=== PATIENT | male | born 1945 | race Caucasian/White ===

== ENCOUNTER → 2016-07-16 14:05 | Outpatient (CLI) | payer MEDICARE, BC | END | disposition home or self-care (01) | LOC: D.US 14:05 | DX: R60.0 Localized edema (principal) ==

== ENCOUNTER → 2017-04-20 12:03 | Outpatient (CLI) | payer MEDICARE, BC | END | disposition home or self-care (01) | LOC: D.RT 12:03 | DX: I49.9 Cardiac arrhythmia, unspecified (principal); I48.91 Unspecified atrial fibrillation ==

== ENCOUNTER → 2017-06-24 07:40 | Outpatient (CLI) | payer MEDICARE, BC ==
[~2017-06-24] VITALS: Ht 190.5 cm; Wt 115.9 kg
--- NOTE | ~2017-06-24 | OP ---
PATIENT NAME: HAMILTON HAYNES MEDICAL RECORD: [id number] :47 LOCATION:D.CAT ADMISSION DATE: SURGEON: RYAN ESTEBAN MD DATE OF OPERATION: 06/24/2017 PROCEDURES: 1. Left heart catheterization. 2. Selective coronary angiography. 3. Left ventriculogram. 4. Aortofemoral runoff. 5. Abdominal aortography. INDICATION: Chest pain compatible with angina, shortness of breath, dyspnea on exertion, abnormal nuclear stress test, leg pain compatible with claudication. PROCEDURE IN DETAIL: After informed consent was obtained and after detailed explanation of risks and benefits as well as alternative therapies, the patient elected to proceed with angiogram and heart catheterization. The right femoral area is prepped and draped in normal sterile fashion. The right femoral artery was cannulated via modified Seldinger technique with placement of 5-Bulgarian sheath. All catheter exchanged through this sheath. FINDINGS: Left ventriculogram was performed in standard 30-degree PRAJAPATI view, reveals preserved cardiac wall motion, ejection fraction 55% to 60%. SELECTIVE CORONARY ANGIOGRAPHY: Left main, left anterior descending, left circumflex, and right coronary are all smooth-walled vessels with no angiographic evidence of coronary artery disease. Abdominal aortography was performed. The catheter was pulled down for aortofemoral runoff. Abdominal aortography reveals no significant abdominal aortic disease, no dissection or aneurysm formation. RIGHT LEG: A. Iliac: The common internal and external iliacs have mild irregularities, but no flow-limiting stenosis. B. Femoral system: The common superficial and deep femoral mild irregularities, but no flow-limiting stenosis. C. Popliteal and infrapopliteal vessels are widely patent with good 3-vessel runoff to the foot. LEFT LEG: A. Iliac: The common internal and external iliacs have mild irregularities, but no flow-limiting stenosis. B. Femoral system: The common superficial and deep femoral mild irregularities, but no flow-limiting stenosis. C. Popliteal and infrapopliteal vessels are widely patent with good 3-vessel runoff to the foot. OVERALL IMPRESSION: 1. No significant coronary artery disease is present. 2. Normal left ventricular systolic function. 3. No significant peripheral vascular disease is present. TRANSINT:[id number] Voice Confirmation ID: [id number] DOCUMENT ID: [id number] OPERATIVE REPORT [id number] HAMILTON HAYNES RYAN ESTEBAN MD at 1056 CC: [id number] DICTATION DATE: 06/24/17 1000 AGRICULTURAL ADVISER: 06/24/17 1113 DEP CLI 06/24/17 [place] [id number] [place] [address]
--- NOTE | ~2017-06-24 | HEMODYNAMI ---
PATIENT:HAMILTON HAYNES MEDICAL RECORD: [id number] : 47 LOCATION:D[facility] ADMISSION DATE: 06/24/17 Generatedon:06/24/20179:58 Patient name: HAMILTON HAYNES Patient #: [id number] SSN: : 1945 Date of study: 06/24/2017 Page: Of Hemodynamic Procedure Report Patient Data Patient Demographics Procedure consent was obtained First Name: HAMILTON Gender: Male Last Name: [place] : 1945 Middle Initial: W Age: 71 year(s) Patient #: [id number] Race: Additional ID: [id number] Contact details [address]: [address] [place] [address] State: [place] City: [place] Zip code: [address] Admission Admission Data Admission Date: 06/24/2017 Admission Time: 7:40 Procedure Procedure Types Cath Procedure Diagnostic Procedure LHC LHC w/Coronaries Peripheral Cath Diagnostic Procedure Cath Peripheral Rakfk-Bvjpgch-Rvu-Off Procedure Description Procedure Date Procedure Date: 06/24/2017 Procedure Start Time: 9:45 Procedure End Time: 9:56 Procedure Staff Name Function Fredi Mcleod MD Performing Physician Catherine Goodwin RT Scrub Veena Santiago RT Monitor Gurjit Rodriguez RN Nurse Procedure Data Cath Procedure Fluoroscopy Diagnostic fluoroscopy Total fluoroscopy Time: 3.5 time: 3.5 min min Diagnostic fluoroscopy Total fluoroscopy dose: 902 dose: 902 mGy mGy Contrast Material Contrast Material Type Amount (ml) Isovue 300 91 Entry Location Entry Primary Successful Side Size Upsize Upsize Entry Closure Succes sful Closure Location (Fr) 1 (Fr) 2 (Fr) Remarks Device Remarks Femoral Right 5 Fr Exoseal artery Estimated blood loss: 5 ml Diagnostic catheters Device Type Used For End Catheter Placement MULTIPACK Pigtail 5 Fr Multi-vessel catheter Angiography MULTIPACK JL 4.0 5Fr Left Coronary catheter Angiography DIAGNOSTIC JL 4.0 5Fr Left Coronary catheter ([id number]) Angiography MULTIPACK 3DRC 5Fr Right Coronary catheter Angiography Procedure Complications No complications Procedure Medications Medication Administration Route Dosage Oxygen NC 2 l/min Lidocaine 2% added to field 20 Heparin Flush Bag added to field 2 bags (1000units/500ml NS) 0.9% NaCl I.V. 100 ml/hr Versed I.V. 1 mg Fentanyl I.V. 50 mcg Versed I.V. 1 mg Fentanyl I.V. 50 mcg Versed I.V. 1 mg Fentanyl I.V. 50 mcg Versed I.V. 1 mg Fentanyl I.V. 50 mcg Hemodynamics Rest Heart Rate: 53 (bpm) Pressure Samples Time Site Value (mmHg) Purpose Heart Use Rate(bpm) 9:47 LV 115/14,24 Snapshot 56 Snapshots Pre Cath Intra NCS Post Cath Vital Signs Time Heart Resp SPO2 NIBP (mmHg) Rhythm Pain Sedation Rate (ipm) (%) Status Level (bpm) 9:35:23 55 18 99 184/98(147) NSR 0 (11) 10(A) , No pain 9:39:47 54 14 97 169/90(136) NSR 0 (11) 10(A) , No pain 9:44:15 54 19 94 161/84(133) NSR 0 (11) 10(A) , No pain 9:48:46 55 17 95 154/90(137) NSR 0 (11) 10(A) , No pain 9:54:04 55 18 96 166/94(139) NSR 0 (11) 10(A) , No pain Medications Time Medication Route Dose Verified Delivered Reason Notes Effec tiveness by by 9:33:42 Oxygen NC 2 Fredi Tierneyie used for l/min Harsha Rodriguez RN procedure 9:33:50 Lidocaine 2% added 20ml Fredi Fredi for local to vial Harsha Mcleod MD anesthetic field 9:33:56 Heparin Flush added 2 Fredi Fredi used for Bag to bags Harsha Mcleod MD procedure (1000units/500ml field NS) 9:34:04 0.9% NaCl I.V. 100 Fredi Buffie Per ml/hr Harsha Rodriguez RN physician 9:41:07 Versed I.V. 1 mg Fredi Tierneyie for Harsha Rodriguez RN sedation 9:41:13 Fentanyl I.V. 50 Fredi Tierneyie for mcg Harsha Rodriguez RN sedation 9:44:40 Versed I.V. 1 mg Fredi Cagle for Harsha Rodriguez RN sedation 9:44:43 Fentanyl I.V. 50 Fredi Cagle for jaden Rodriguez RN sedation 9:47:03 Versed I.V. 1 mg Fredi Cagle for Harsha Rodriguez RN sedation 9:47:06 Fentanyl I.V. 50 Fredi Cagle for jaden Rodriguez RN sedation 9:50:56 Versed I.V. 1 mg Fredi Cagle for Harsha Rodriguez RN sedation 9:50:59 Fentanyl I.V. 50 Fredi Cagle for jaden Rodriguez RN sedation Procedure Log Time Note 9:00:58 Catherine Goodwin RT(R) sent for patient. Start room use. 9:19:22 Informed consent obtained and on chart 9:20:06 Time tracking: Regular hours 9:20:11 Plan of Care:Hemodynamics will remain stable., Cardiac rhythm will remain stable., Comfort level will be maintained., Respiratory function will remain adequate., Patient/ family verbilizes understanding of procedure., Procedure tolerated without complication., Recovers from procedure without complications.. 9:26:36 Patient received from Pre/Post Procedure Room to CCL 2 Alert and oriented. Tansferred to table in Supine position. 9:26:37 Warm blankets applied, and ezequiel hugger turned on for patient comfort. 9:26:37 Correct patient and procedure confirmed by team. 9:26:38 ECG and BP/O2 sat monitors applied to patient. 9:33:42 Oxygen 2 l/min NC was administered by Gurjit Rodriguez RN; used for procedure; 9:33:50 Lidocaine 2% 20ml vial added to field was administered by Fredi Mcleod MD; for local anesthetic; 9:33:56 Heparin Flush Bag (1000units/500ml NS) 2 bags added to field was administered by Fredi Mcleod MD; used for procedure; 9:34:04 0.9% NaCl 100 ml/hr I.V. was administered by Gurjit Rodriguez RN; Per physician; 9:34:07 Vital chart was started 9:35:47 Baseline sample Acquired. 9:35:51 Rhythm: sinus rhythm 9:35:53 Full Disclosure recording started 9:36:11 H&P Date Dictated: 06/02/2017 Within 30 days and on chart., H&P Addendum completed by physician on day of procedure. (MUST COMPLETE FOR ALL OUTPATIENTS). 9:36:12 Pre-procedure instructions explained to patient. 9:36:13 Pre-op teaching completed and patient verbalized understanding. 9:36:14 Family in waiting room. 9:36:15 Patient NPO since Midnight. 9:36:17 Is the patient allergic to Iodine/contrast media? Yes. 9:36:18 Was the patient premedicated? Yes 9:36:19 Is patient on blood thinner?Yes 9:36:22 ACC The patient was administered the following blood thiners within the last 24 hours: ACCPlavix 9:36:24 Patient diabetic? No. 9:36:26 Previous problem with sedation/anesthesia? No ? 9:36:27 Snore? Yes 9:36:28 Sleep apnea? No 9:36:29 Deviated septum? No 9:36:30 Opens mouth fully? Yes 9:36:30 Sticks out tongue? Yes 9:36:32 Airway obstruction? No ? 9:36:36 Dentures? No ? 9:36:39 Pre procedure: right dorsailis pedis pulse 1+ Palpable, but thready & weak; easily obliterated 9:36:43 Pre procedure: left dorsailis pedis pulse 1+ Palpable, but thready & weak; easily obliterated 9:36:46 Patient pain scale 0/10 ?. 9:36:51 IV patent on arrival in left forearm with 0.9% NaCl at O. 9:36:56 Lab results completed and on chart. 9:37:04 Bilateral groins area was prepped with chlora-prep and draped in sterile fashion 9:37:05 Alarms reviewed by R. N. 9:37:05 Sharps counted by scrub and verified by R.N. 9:40:38 Physician arrived 9:40:39 --------ALL STOP TIME OUT------ 9:40:39 Final Timeout: patient, procedure, and site verified with staff and physician. All members of the team are in agreement. 9:40:44 Bilateral groins site verified by team. 9:40:46 Physical assessment completed. ASA score P 2 - A patient with mild systemic disease as per Fredi Mcleod MD. 9:40:49 Sedation plan: IV Moderate Sedation Medication:Versed, Fentanyl 9:40:56 Use device set Femoral Dx 9:40:57 ACIST Syringe (11729) opened to sterile field. 9:40:58 Bag Decanter (2002S) opened to sterile field. 9:40:58 Medline Cath Pack ([id number]) opened to sterile field. 9:41:04 SHEATH 5FR [place] ([id number]) opened to sterile field. 9:41:05 DIAGNOSTIC WIRE .035 260cm J wire (338810) opened to sterile field. 9:41:06 ACIST Hand Control (10626) opened to sterile field. 9:41:07 Versed 1 mg I.V. was administered by Gurjit Rodriguez RN; for sedation; 9:41:07 ACIST Manifold (17447) opened to sterile field. 9:41:07 DIAGNOSTIC Multipack 5Fr catheter set ([id number]) opened to sterile field. 9:41:08 Tegaderm 4 x 4 (1626W) opened to sterile field. 9:41:13 Fentanyl 50 mcg I.V. was administered by Gurjit Rodriguez RN; for sedation; 9:41:21 Procedure type changed to Cath procedure, Diagnostic procedure, LHC, LHC w/Coronaries, Peripheral Cath Diagnostic Procedure, Cath Peripheral, Kgquj-Ieqitwz-Iua-Off 9:44:40 Versed 1 mg I.V. was administered by Gurjit Rodriguez RN; for sedation; 9:44:43 Fentanyl 50 mcg I.V. was administered by Gurjit Rodriguez RN; for sedation; 9:45:01 Procedure started. 9:45:11 Local anesthetic to right femoral artery with Lidocaine 2% by Fredi Mcleod MD.INITIAL ACCESS ONLY 9:45:48 A 5 Fr sheath was inserted into the Right Femoral artery 9:46:05 A MULTIPACK Pigtail 5 Fr catheter was advanced over the wire and used for Multi-vessel Angiography. 9:47:03 Versed 1 mg I.V. was administered by Gurjit Rodriguez RN; for sedation; 9:47:06 Fentanyl 50 mcg I.V. was administered by Gurjit Rodriguez RN; for sedation; 9:47:44 LV hemodynamics recorded. 9:47:52 LV gram done using PRAJAPATI 9:47:55 Injector settings: Ml/sec: 5, Volume: 15, 9:48:00 EF : 55 % 9:48:28 Abdominal angiogram w/ runoff was performed. 9:48:51 Injector settings: Ml/sec: 10, Volume: 20, 9:48:58 Catheter removed. 9:49:05 A MULTIPACK JL 4.0 5Fr catheter was advanced over the wire and used for Left Coronary Angiography. 9:50:39 Catheter removed. unable to cannulate vessel. 9:50:56 Versed 1 mg I.V. was administered by Gurjit Rodriguez RN; for sedation; 9:50:59 Fentanyl 50 mcg I.V. was administered by Gurjit Rodriguez RN; for sedation; 9:51:39 A DIAGNOSTIC JL 4.0 5Fr catheter ([id number]) was advanced over the wire and used for Left Coronary Angiography. 9:51:49 LCA angiography performed. 9:51:52 Injector settings: Ml/sec: 3, Volume: 6, 9:52:41 Catheter removed. 9:52:52 A MULTIPACK 3DRC 5Fr catheter was advanced over the wire and used for Right Coronary Angiography. 9:53:37 RCA angiography performed. 9:53:40 Injector settings: Ml/sec: 3, Volume: 6, 9:53:53 EXOSEAL 5Fr (EX500) opened to sterile field. 9:53:58 Catheter removed. 9:54:07 Sheath removed intact; hemostasis achieved with Exoseal to the Right Femoral artery. 9:54:10 Procedure ended.(Physican Out) 9:54:33 Fluoroscopy time 03.50 minutes. 9:54:37 Flurop Dose total: 902 9:54:37 Fluoroscopy dose: 902 mGy 9:55:44 Contrast amount:Isovue 300 91ml. 9:55:45 Sharps counted by scrub and verified by R.N. 9:55:46 Insertion/operative site no bleeding no hematoma. 9:55:49 Post-op/insertion site Right Femoral artery dressed using a 4 x 4 and Tegaderm. 9:55:52 Post right femoral artery:stable 9:55:53 Post Procedure Pulses reassessed and unchanged 9:55:56 Post procedure rhythm: unchanged. 9:55:58 Estimated blood loss: 5 ml 9:56:00 Post procedure instruction explained to patient.Patient verbalizes understanding. 9:56:00 Patient needs reinforcement of post procedure teaching. 9:56:01 Procedure and supply charges have been captured, reviewed, submitted and are correct. 9:56:05 Procedure Complication : No complications 9:56:07 Vital chart was stopped 9:56:08 See physician's report for complete and final results. 9:56:10 Report given to Pre/Post Procedure Room. 9:56:12 Patient transfered to Pre/Post Procedure Room with Stretcher. 9:56:14 Procedure ended. 9:56:14 Full Disclosure recording stopped 9:56:19 End room use (Document Last) Device Usage Item Name Manufacture Quantity Catalog Hospital Part Current Minimal L ot# / Number Charge Number Stock Stock Serial# Code ACIST Acist 1 93935 396997 488883 008219 20 Syringe Medical (31048) Systems Inc Bag Microtek 1 2001S 137913 43523 202478 5 Decanter Medical Inc. () Medline Cardinal 1 [id number] 320885 04560 274004 5 Cath Pack Health ([id number]) SHEATH 5FR Terumo 1 [id number] 790957 925489 327763 40 Vanderpool (SBF302) DIAGNOSTIC St Sujit 1 665434 861125 638239 292089 30 WIRE .035 260cm J wire (929238) ACIST Hand Acist 1 02790 993122 396078 268733 5 Control Medical (42097) Systems Inc ACIST Acist 1 94835 842909 337608 769226 5 Manifold Medical (13601) Systems Inc DIAGNOSTIC Cardinal 1 TI6520 191831 78705 856101 30 Multipack Health 5Fr catheter set (WL5830) Tegaderm 4 3M 1 1626W 695874 612905 898754 5 x 4 (1626W) MULTIPACK Cardinal 1 706522 5 Pigtail 5 Health Fr catheter MULTIPACK Cardinal 1 273832 5 JL 4.0 5Fr Health catheter DIAGNOSTIC Cardinal 1 [id number] 956035 027299 376405 10 JL 4.0 5Fr Health catheter (317492M) MULTIPACK Cardinal 1 064185 5 3DRC 5Fr Health catheter EXOSEAL 5Fr Cardinal 1 EX500 085908 298276 682831 10 (EX500) Health Signature Audit [place] Stage Time Signature Unsigned Intra-Procedure 06/24/2017 Catherine Goodwin 9:58:18 AM RT(R) Signatures Monitor : Veena Santiago Signature : RT Date : Time : [address] [place] [address]
[~2017-06-24 07:40] MED LIST: ALLOPURINOL TAB 300 PO; CARDIZEM CD360 MG PO; FUROSEMIDE20 MG PO; OMEPRAZOLE CAP 20M PO; PLAVIX75 MG PO; POTASSIUM99 M1 PO; PREDNISONE20 MG PO; PRIMIDONE PO; PROSCAR5 MG PO; TOPROL XL100 MG PO; TRICOR145 MG PO; UROXATRAL10 MG PO; ZOLOFT50 MG PO; [UNRECOGNIZED DRUG - OTHER] PO
[2017-06-24 08:23] VITALS: BP 188/86; Ht 190.5 cm; Wt 115.9 kg
[2017-06-24 08:28] LABS: BASOPHILS 0 % (0-2); EOSINOPHILS 0 % (0-7); HEMATOCRIT 46.4 % (42.0-54.0); HEMOGLOBIN 16.1 g/dL (13.5-17.5); IMMATURE GRANULOCYTES 0.1 % (0-5); LYMPHOCYTES 7.7 % (15-50); MCH 32.6 pg (26.0-34.0); MCHC 34.7 g/dL (31.0-37.0); MCV 93.9 fL (80.0-100.0); MEAN PLATELET VOLUME 9.7 fL (7.4-10.4); NEUTROPHILS 89.2 % (40-80); PLATELET COUNT 238 10x3/uL (130-400); RBC 4.94 10x6/uL (4.20-6.10); RDW 13.3 % (11.5-14.5); WBC 6.8 10x3/uL (4.8-10.8)
[2017-06-24 08:30] LABS: ANION GAP 15.7 mmol/L (8-16); CALCIUM 9.5 mg/dL (8.5-10.1); CARBON DIOXIDE 24.2 mmol/L (21.0-32.0); CREATININE - SERUM 1.1 mg/dL (0.6-1.3); POTASSIUM - SERUM 3.9 mmol/L (3.5-5.1)
== END | disposition home or self-care (01) ==
LOC: D.CATH 07:40
PROVIDERS: Internal Medicine Interventional Cardiology
DX: R07.89 Other chest pain (principal); M79.605 Pain in left leg; M79.604 Pain in right leg; R94.39 Abnormal result of other cardiovascular function study; Z01.812 Encounter for preprocedural laboratory examination